=== PATIENT | female | born 1940 | race Caucasian/White ===

== ENCOUNTER 2016-12-03 10:44 | Inpatient (IN) | payer OTHER ==
[~2016-12-03] VITALS: Ht 160 cm; Wt 61.2 kg
[2016-12-03 11:00] VITALS: BP 196/123; PULSE 93; RESP 18; TEMP 97; O2SAT 100
--- NOTE | 2016-12-03 11:15 | NUR ---
Ambulated to Room 6 unassisted steady gait with Daughter. C/O right arm and leg numbness x 20mins at 0600. Pt also states 2 episodes yesterday while sitting at computer. Denies blurred vision or facial asymmetry does c/o PARMAR 09/18. On assessment no neuro deficit noted
--- NOTE | 2016-12-03 11:15 | NUR ---
Patient to ER bed 06 to gown for evaluation. Side rails up. Report given to Miguel Angel KEYES.
--- NOTE | 2016-12-03 11:17 | NUR ---
ER at bedside examining patient.
[2016-12-03] MEDS ORDERED: cloNIDine HCL 0.1 MG TABLET PO ONE (11:30)
[2016-12-03] MEDS ORDERED: METOPROLOL TARTRATE 5 MG/5 ML VIAL IVP ONE (11:30)
--- NOTE | 2016-12-03 11:50 | NUR ---
Telemetry strip printed and interpreted as sinus rhythm. HR: 90
--- NOTE | 2016-12-03 12:05 | NUR ---
off unit to radiology. Dr Heart notified of VS
[2016-12-03 12:22] LABS: PROTHROMBIN TIME 10.5 SECS (9.5-12.5)
--- NOTE | 2016-12-03 12:30 | NUR ---
Pt returned from radiology. PT tolerated well, no signs of distress, vss.
[2016-12-03 12:32] LABS: ALANINE AMINOTRANSFERASE 30 U/L (12-78); ALBUMIN 3.9 g/dL (3.4-4.8); ANION GAP 7 (5-15); ASPARTATE AMINOTRANSFERASE 25 U/L (10-37); CALCIUM 9.2 mg/dL (8.4-11.0); CHLORIDE 107 mmol/L (98-107); CREATININE 0.64 mg/dL (0.55-1.30); GLUCOSE 92 mg/dL (70-99); POTASSIUM 3.6 mmol/L (3.5-5.1); SODIUM SERUM 140 mmol/L (136-145); TOTAL BILIRUBIN 0.4 mg/dL (0.0-1.0); UREA NITROGEN, BLOOD 11 mg/dL (8-21)
[2016-12-03 12:37] LABS: BASOPHILS % (AUTO) 0.7 % (0.0-2.0); EOSINOPHILS % (AUTO) 0.5 % (0.0-4.0); HEMOGLOBIN 12.5 g/dL (12.0-16.0); LYMPHOCYTES # (AUTO) 1.2 K/uL (1.0-5.5); MEAN CORPUSCULAR HEMOGLOBIN 30 pg (27-31); MEAN CORPUSCULAR HGB CONC 34 % (32-36); MEAN CORPUSCULAR VOLUME 87 fL (79.0-98.0); MONOCYTES # (AUTO) 0.5 K/uL (0.0-1.0); MONOCYTES % (AUTO) 8.3 % (1.7-9.3); NEUTROPHILS # (AUTO) 3.8 K/uL (1.8-7.7); NEUTROPHILS % (AUTO) 68.5 % (40.0-70.0); PLATELET COUNT (AUTO) 267 K/uL (130-430); RED BLOOD CELL COUNT(AUTO) 4.23 MIL/uL (4.2-6.2); RED CELL DISTRIBUTION WIDTH 12.9 % (9.0-15.0); WHITE BLOOD COUNT (AUTO) 5.5 K/uL (4.8-10.8)
[2016-12-03 12:40] LABS: BILIRUBIN,URINE NEGATIVE (NEGATIVE); CLARITY/URINE CLEAR (CLEAR); COLOR,URINE YELLOW (YELLOW); GLUCOSE,URINE NEGATIVE (NEGATIVE); KETONES,URINE TRACE (NEGATIVE); LEUKOCYTE ESTERASE ,URINE NEGATIVE (NEGATIVE); NITRITE, URINE NEGATIVE (NEGATIVE); PROTEIN URINE NEGATIVE (NEGATIVE); UROBILINOGEN,URINE 0.2 (0.2-1.0)
[2016-12-03 12:41] LABS: BLOOD, URINE TRACE (NEGATIVE)
[2016-12-03] MEDS ORDERED: ASPIRIN 81 MG TAB.CHEW PO ONE (12:45)
--- NOTE | 2016-12-03 12:45 | NUR ---
Pt medicated as ordered.
[2016-12-03 12:46] LABS: BACTERIA,URINE FEW /HPF (None Seen); MUCUS,URINE None Seen /LPF (None Seen); RBC,URINE 0-3 /HPF (0-3); WBC,URINE 0-3 /HPF (0-3)
[2016-12-03] MEDS ORDERED: cloNIDine HCL 0.1 MG TABLET PO PRN (13:00)
--- NOTE | 2016-12-03 14:05 | NUR ---
Transfer to tele via ACLS protocol. Licensed nurse present. IV present no signs or symptoms of infiltration.
--- NOTE | 2016-12-03 14:05 | NUR ---
Patient will be admitted to care of Dr. Bro. Admitted to tele unit. Will go to room 116 B. Belongings list completed. Summary report printed. Report will be given at bedside.
[2016-12-03 14:10] VITALS: BP 159/86; PULSE 66; RESP 17; TEMP 98.2; O2SAT 97
--- NOTE | 2016-12-03 14:10 | NUR ---
ADMISSION NOTE Received patient from ER via gurney. Patient admitted with diagnosis of HTN Urgency. Patient is awake, alert, oriented X 4. Patient oriented to hospital room, call light, toileting, pain management and safety-teach back done. Patient informed that Saritha will be her nurse. Personal belongings checked and Belongings List documented. Call light within reach.
[2016-12-03] MEDS ORDERED: MAGNESIUM SULFATE 50 ML IV PRN (14:15)
[2016-12-03] MEDS ORDERED: ZOLPIDEM TARTRATE 5 MG TABLET PO PRN (14:15)
[2016-12-03] MEDS ORDERED: DOCUSATE SODIUM 100 MG CAPSULE PO PRN (14:15)
[2016-12-03] MEDS ORDERED: POTASSIUM CHLORIDE 10 MEQ TAB.PRT.SR PO PRN (14:15)
[2016-12-03] MEDS ORDERED: ONDANSETRON HCL 4 MG/2 ML VIAL IVP PRN (14:15)
[2016-12-03] MEDS ORDERED: LORazepam 2 MG/ML VIAL IVP PRN (14:15)
[2016-12-03] MEDS ORDERED: MORPHINE 2 MG/ML INJ. SYRINGE IVP PRN (14:15)
[2016-12-03] MEDS ORDERED: ACETAMINOPHEN 325 MG TABLET PO PRN (14:15)
--- NOTE | 2016-12-03 14:38 | NUR ---
CONSULT CARDIO CARDIAC DR WHITE [phone] DR VANG OUTSIDE SALES INSPECTOR S/W [employer] EXCHANGE @ 0236
--- NOTE | 2016-12-03 15:30 | NUR ---
Admission assessment Received Pt awake, alert, orientated x4. Pt breathing even and unlabored. O2 sat 98% room air. Pt c/o right side numbness and and tingling on the right side of her body. Facial symmetrical, no facial drooping noted. Pt able to raise both upper & lower extremities equally, muscle strength 5/5. Speech is clear. IV access noted right hand 22G, HL. IV site patent with blood return. No s/s of infiltration or inflammation noted. Assessment done. Plan of care discussed with Pt. Informed Pt to push the call light if Pt needs assistance with anything. Pt verbalized understanding. Call light within easy reach, bed at lowest position, will continue to monitor.
[2016-12-03 15:41] LABS: THYROID STIMULATING HORMONE 0.39 uIu/mL (0.34-4.82)
[2016-12-03 16:00] VITALS: BP 159/93; PULSE 66; RESP 16; TEMP 98.5; O2SAT 98
--- NOTE | 2016-12-03 17:38 | NUR ---
PATIENT RESTING: Patient resting quietly. Chest rise and fall noted. No acute distress noted. Vital signs within normal range. Call light within easy reach, bed at lowest position, will continue to monitor.
--- NOTE | 2016-12-03 18:45 | NUR ---
Closing notes Pt awake and eating dinner. Pt denies pain, SOB, discomfort, numbness or tingling. Informed Pt to push the call light if Pt needs assistance with anything. Call light within easy reach, bed at lowest position, will endorse all care to oncoming RN.
--- NOTE | 2016-12-03 19:51 | NUR ---
NOTES; SEEN PT IN BED, A/A/O X4. NO ACUTE DISTRESS NOTED. PT STATED 3/10 HEADACHE . PT STATED THAT SHE TAKES ADVIL FOR HEADACHE. MD TO BE NOTIFIED. BP 157/82, HR 72. AFEBRILE. DENIES ANY DIZZINESS OR FAINTING. ROMAN HAND RETAIL CONSULTANT EQUAL, ROMAN FEET PUSH EQUAL. NO SLURRED SPEECH NOTED. IV SALINE MACEY TO THE RT HAND, PATENT. INSTRUCTED PT ON THE USE OF CALL LIGHT TO CALL FOR ANY NEED TO ASSIST. PT VERBALIZED AND DEMONSTRATED UNDERSTANDING. BED LOCKED AND IN LOW POSITION. SIDE RAILS UP X3, BED ALRAM ON, CALL LIGHT WITHIN REACH.
[2016-12-03 20:06] VITALS: BP 157/82; PULSE 72; RESP 20; TEMP 98.4; O2SAT 96
[2016-12-03] MEDS ORDERED: IBUPROFEN 200 MG TABLET PO PRN (20:30)
--- NOTE | 2016-12-03 20:44 | NUR ---
NOTES; DR HIGGINS CALLED, SPOKE WITH MD AND INFORMED ABOUT PT C/O HEADACHE AND REQUEST FOR ADVIL. ALSO INFORMED MD THAT PT TAKES ARMOUR THYROID 15MG PO DAILY BEFORE MEALS. ORDERS RECEIVED TO CONTINUE HOME MEDICATION OF ARMOUR THYROID 15MG PO DAILY BEFORE MEALS AND ADVIL 600MG PO EVERY 6RS PRN PAIN.
[2016-12-03] MEDS ORDERED: LISINOPRIL 10 MG TABLET (PRINIVIL) PO ONE (21:00)
--- NOTE | 2016-12-03 21:26 | NUR ---
PAGED PAGED BENEDICT LOPEZ AT [phone] SPOKE BETTE WITH GAUTAM MARINELLI X RAY EXAMINER OF AIRCRAFT.
--- NOTE | 2016-12-03 21:34 | NUR ---
NOTES; RECEIVED CRITICAL TROPONIN LEVEL OF 0.144 FROM NOELLE FELICIANO, TEXTILE DESIGNS SALES REPRESENTATIVE. DR. CHRISTOPHER TREVINO, DR VANG SECOND LANGUAGE TUTOR. WAITING FOR DR. VANG TO CALL BACK. RN COVERING AND CHARGE NURSE NOTIFIED.
[2016-12-03] MEDS ORDERED: IBUPROFEN 600 MG TABLET ONE (21:38)
[2016-12-03] MEDS: METOPROLOL TARTRATE 50 MG TABLET PO SCH (21:41)
[2016-12-03] MEDS: HEPARIN SODIUM,PORCINE 5000 UNITS/ML VIAL SUBCUT SCH (21:46)
--- NOTE | 2016-12-03 21:49 | NUR ---
NOTES; WAS UNABLE TO REMOVE IBUPROFEN FROM PIXES. HOUSE SUP INFORMED. MEDICATION WAS TAKEN OUT BY HOUSE SUP. IBUPROFEN 600MG PO ADMINISTERED FOR 6 HEADACHE ALONG WITH ALL DUE PO MEDS. WILL CONTINUE TO MONITOR.
--- NOTE | 2016-12-03 21:56 | NUR ---
2ND PAGE OUT TO PAGED GAUTAM MARINELLI AT [phone] SPOKE WITH HI.
--- NOTE | 2016-12-03 21:58 | NUR ---
NOTES; DR. VANG PAGED FOR THE SECOND TIME FOR CRITICAL TROPONIN LEVEL.
--- NOTE | 2016-12-03 23:05 | NUR ---
3RD PAGE OUT PAGED GAUTAM MARINELLI AT [phone] SPOKE WITH MINE.
--- NOTE | 2016-12-03 23:09 | NUR ---
NOTES; DR VANG CALLED BACK. SPOKE WITH MD AND NOTIFIED HIM OF ELEVATED TROPONIN LEVEL OF 0.144. NO NEW ORDERS RECEIVED. RN COVERING AND CHARGE NURSE NOTIFIED.
[2016-12-03] MEDS ORDERED: COMMUNICATION ORDER XX ONE (23:45)
--- NOTE | 2016-12-04 | NUR ---
NOTES; APPEARED TO BE SLEEPING, EYES CLOSED. RESPIRATION EVEN AND UNLABORED. NO ACUTE DISTRESS NOTED. SAFETY MEASURES IN PROGRESS.
[2016-12-04 00:06] VITALS: BP 150/97; PULSE 57; RESP 18; TEMP 97.4; O2SAT 98
--- NOTE | 2016-12-04 02:00 | NUR ---
NOTES; APPEARED TO BE SLEEPING, EYES CLOSED. RESPIRATION EVEN AND UNLABORED. NO ACUTE DISTRESS NOTED. SAFETY MEASURES IN PROGRESS.
--- NOTE | 2016-12-04 04:04 | NUR ---
NOTES; ASSISTED TO THE BATH ROOM, VOIDED FREELY. ASSISTED BACK TO BED, GAIT STEADY. DENIES ANY PAIN AT THIS TIME. SAFETY MEASURES IN PROGRESS.
[2016-12-04 04:30] VITALS: BP 146/80; PULSE 60; RESP 18; TEMP 98.1; O2SAT 98
--- NOTE | 2016-12-04 06:30 | NUR ---
NOTES; Resting quietly, easily aroused. No significant changes noted. Vital signs stable. All needs attended, safety measures in progress. Call ureña within reach. Will endorse care to incoming nurse.
[2016-12-04 06:55] LABS: ANION GAP 8 (5-15); CALCIUM 8.9 mg/dL (8.4-11.0); CHLORIDE 106 mmol/L (98-107); CREATININE 0.54 mg/dL (0.55-1.30); GLUCOSE 86 mg/dL (70-99); SODIUM SERUM 142 mmol/L (136-145); UREA NITROGEN, BLOOD 13 mg/dL (8-21)
[2016-12-04] MEDS: THYROID 30 MG TABLET PO SCH (07:00)
[2016-12-04 07:01] LABS: BASOPHILS % (AUTO) 0.5 % (0.0-2.0); EOSINOPHILS # (AUTO) 0.2 K/uL (0.0-0.4); EOSINOPHILS % (AUTO) 4.4 % (0.0-4.0); HEMOGLOBIN 11.6 g/dL (12.0-16.0); LYMPHOCYTES # (AUTO) 1.3 K/uL (1.0-5.5); LYMPHOCYTES % (AUTO) 33.1 % (20.5-51.5); MEAN CORPUSCULAR HEMOGLOBIN 29 pg (27-31); MEAN CORPUSCULAR HGB CONC 32 % (32-36); MEAN CORPUSCULAR VOLUME 89 fL (79.0-98.0); MONOCYTES # (AUTO) 0.5 K/uL (0.0-1.0); MONOCYTES % (AUTO) 11.1 % (1.7-9.3); NEUTROPHILS # (AUTO) 2.1 K/uL (1.8-7.7); NEUTROPHILS % (AUTO) 50.9 % (40.0-70.0); PLATELET COUNT (AUTO) 216 K/uL (130-430); RED BLOOD CELL COUNT(AUTO) 4.03 MIL/uL (4.2-6.2); RED CELL DISTRIBUTION WIDTH 12.9 % (9.0-15.0)
[2016-12-04 07:08] LABS: WHITE BLOOD COUNT (AUTO) 4.1 K/uL (4.8-10.8)
--- NOTE | 2016-12-04 07:27 | NUR ---
HANDOFF RECEIVED FROM NOC NURSE. PATIENT TO HAVE MOTRIN DOSE ADJUSTMENT 200MG PER NOC NURSE. CRITICAL LAB CALL FROM LAB. WILL NOTIFY CARDIO.
--- NOTE | 2016-12-04 08:43 | NUR ---
Patient notes history cataract on left eye repaired and right eye needs repair. 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 She plays everyday with friends online. Has noted a headache 3 days prior to this admission. NOC nurse notes increase in bp on exertion systolic 180's. Daughter also notes history of acute osteo and fractures of the spine as a possible cause of the numbness. Call to MD for troponin result, Doctor Centeno.
[2016-12-04 08:47] VITALS: BP 151/78; PULSE 62; RESP 18; TEMP 98.3; O2SAT 94
--- NOTE | 2016-12-04 09:02 | NUR ---
CALLED NEUROLOGY CONSULT TO DR Petrona HOUSER, RE: NEUROPATHY. SPOKE TO THE EXCHANGE .
[2016-12-04] MEDS: ASPIRIN 81 MG TABLET(ECOTRIN) PO SCH (10:16)
[2016-12-04] MEDS: ATORVASTATIN 20 MG TABLET PO SCH (10:16)
[2016-12-04] MEDS: METOPROLOL TARTRATE 50 MG TABLET PO SCH ×2 (10:18→21:17)
[2016-12-04] MEDS: HEPARIN SODIUM,PORCINE 5000 UNITS/ML VIAL SUBCUT SCH ×2 (10:19→21:14)
--- NOTE | 2016-12-04 10:26 | NUR ---
Patient rounds. Given meds as ordered. Conveyed consult/ treatment with neurologist this afternoon likely . Patient and daughter verbalize understanding.
[2016-12-04 12:31] VITALS: BP 190/95; PULSE 60; RESP 18; TEMP 97.7; O2SAT 96
--- NOTE | 2016-12-04 12:38 | NUR ---
ELEVATION IN SYSTOLIC AND DIASTOLIC BP. PRN GIVEN.
--- NOTE | 2016-12-04 15:59 | NUR ---
BP REFRACTORY TO CLONIDINE 0.2MG. WILL MONITOR.
[2016-12-04 16:27] VITALS: BP 188/92; PULSE 59; RESP 19; TEMP 97.8; O2SAT 95
[2016-12-04] MEDS ORDERED: IBUPROFEN 600 MG TABLET PO PRN (18:00)
--- NOTE | 2016-12-04 18:24 | NUR ---
DOCTOR VANG AND DOCTOR HOUSER ROUNDS AT THIS TIME.
--- NOTE | 2016-12-04 18:47 | NUR ---
DOCTOR VANG RECOMMENDATION: DOUBLE THE DOSE OF SCHEDULED BLOOD PRESSURE MEDICINE. DOCTOR HOUSER RECOMMENDS LIPID PANEL AND POSSIBLE CHOLESTEROL MED. D/C HOME IF CAROTID STUDIES ARE NEGATIVE.
[2016-12-04 19:50] VITALS: BP 136/62; PULSE 54; RESP 18; TEMP 96.9; O2SAT 93
--- NOTE | 2016-12-04 20:00 | NUR ---
NOTES; SEEN PT SITTING UP IN BED, A/A/O X4. FAMILY AT BEDSIDE WITH GOOD SUPPORT. NO ACUTE DISTRESS NOTED. VITAL SIGNS STABLE,AFEBRILE. DENIES ANY DIZZINESS, FAINTING OR LEFT SIDE WEAKNESS OR TINGLING SENSATION. ROMAN HAND DIRECT CHILL CASTER EQUAL, ROMAN FEET PUSH EQUAL. NO SLURRED SPEECH NOTED. IV SALINE MACEY TO THE RT HAND, PATENT. NO SIGNS OF INFECTION NOTED ON IV SITE. INSTRUCTED PT ON THE USE OF CALL LIGHT TO CALL FOR ANY NEED TO ASSIST. PT VERBALIZED AND DEMONSTRATED UNDERSTANDING. BED LOCKED AND IN LOW POSITION. SIDE RAILS UP X3, BED ALARM ON, CALL LIGHT WITHIN REACH. WILL CONTINUE TO MONITOR.
--- NOTE | 2016-12-04 21:20 | NUR ---
NOTES; SCHEDULED PO MEDICATION, ADMINISTERED. PT TOLERATED MEDS WELL.
--- NOTE | 2016-12-04 22:30 | NUR ---
NOTES; APPEARED TO BE SLEEPING, EYES CLOSED. RESPIRATION EVEN AND UNLABORED. NO ACUTE DISTRESS NOTED. SAFETY MEASURES IN PROGRESS.
[2016-12-05] VITALS (8 sets, daily range): BP systolic 104–146; BP diastolic 50–72; PULSE 50–59; RESP 17–20; TEMP 96.8–98; O2SAT 95–100
--- NOTE | 2016-12-05 00:15 | NUR ---
NOTES; ASSISTED PT TO THE BATHROOM. VOIDED FREELY . ASSISTED BACK WITH GAIT STEADY.
--- NOTE | 2016-12-05 02:00 | NUR ---
NOTES; APPEARED TO BE SLEEPING, EYES CLOSED. RESPIRATION EVEN AND UNLABORED. NO ACUTE DISTRESS NOTED. SAFETY MEASURES IN PROGRESS.
--- NOTE | 2016-12-05 04:30 | NUR ---
NOTES; APPEARED TO BE SLEEPING, EYES CLOSED. RESPIRATION EVEN AND UNLABORED. NO ACUTE DISTRESS NOTED. SAFETY MEASURES IN PROGRESS.
--- NOTE | 2016-12-05 06:00 | NUR ---
NOTES; Resting quietly, easily aroused. No significant changes noted. All needs attended, safety measures in progress. Call ureña within reach. Will endorse care to incoming nurse.
[2016-12-05 06:58] LABS: BASOPHILS # (AUTO) 0.1 K/uL (0.0-0.2); BASOPHILS % (AUTO) 1.2 % (0.0-2.0); EOSINOPHILS # (AUTO) 0.2 K/uL (0.0-0.4); EOSINOPHILS % (AUTO) 3.8 % (0.0-4.0); HEMATOCRIT 34.6 % (36-48); LYMPHOCYTES # (AUTO) 1.5 K/uL (1.0-5.5); LYMPHOCYTES % (AUTO) 31.9 % (20.5-51.5); MEAN CORPUSCULAR HEMOGLOBIN 30 pg (27-31); MEAN CORPUSCULAR HGB CONC 35 % (32-36); MEAN CORPUSCULAR VOLUME 88 fL (79.0-98.0); MONOCYTES # (AUTO) 0.5 K/uL (0.0-1.0); MONOCYTES % (AUTO) 10.6 % (1.7-9.3); NEUTROPHILS # (AUTO) 2.5 K/uL (1.8-7.7); NEUTROPHILS % (AUTO) 52.5 % (40.0-70.0); PLATELET COUNT (AUTO) 198 K/uL (130-430); RED BLOOD CELL COUNT(AUTO) 3.95 MIL/uL (4.2-6.2); RED CELL DISTRIBUTION WIDTH 12.6 % (9.0-15.0); WHITE BLOOD COUNT (AUTO) 4.8 K/uL (4.8-10.8)
[2016-12-05 07:05] LABS: ANION GAP 5 (5-15); CALCIUM 8.9 mg/dL (8.4-11.0); CHLORIDE 108 mmol/L (98-107); CREATININE 0.63 mg/dL (0.55-1.30); GLUCOSE 90 mg/dL (70-99); SODIUM SERUM 144 mmol/L (136-145); UREA NITROGEN, BLOOD 15 mg/dL (8-21)
[2016-12-05] MEDS: THYROID 30 MG TABLET PO SCH (07:55)
--- NOTE | 2016-12-05 08:00 | NUR ---
AM Initial Notes Pt aaox4 with no complaints of pain, discomfort, numbness or tingling sensations. No sob, difficulty breathing or distress noted. environmental monitoring specialist in place. IV to right hand #22g saline locked patent and flushing. Educated about safety and fall risk precautions. Verbalized understanding. Encouraged to call for assistance. Call light within reach. Will monitor.
[2016-12-05] MEDS: ASPIRIN 81 MG TABLET(ECOTRIN) PO SCH (09:03)
[2016-12-05] MEDS: METOPROLOL TARTRATE 50 MG TABLET PO SCH ×2 (09:03→20:43)
[2016-12-05] MEDS: ATORVASTATIN 20 MG TABLET PO SCH (09:04)
[2016-12-05] MEDS: HEPARIN SODIUM,PORCINE 5000 UNITS/ML VIAL SUBCUT SCH ×2 (09:06→20:45)
--- NOTE | 2016-12-05 09:40 | NUR ---
Dr. Dieudonne WAGGONER doing rounds. Plan of care discussed with patient and daughter at bedside.
[2016-12-05] MEDS ORDERED: LISINOPRIL 10 MG TABLET (PRINIVIL) PO SCH (09:45)
--- NOTE | 2016-12-05 10:00 | NUR ---
Rounds Pt awake resting in bed. No complaints of pain or numbness to arms. Kept comfortable. Encouraged to call for assistance. Will monitor.
[2016-12-05] MEDS ORDERED: THYROID 30 MG TABLET PO ONE (10:15)
[2016-12-05] MEDS ORDERED: LISINOPRIL 10 MG TABLET (PRINIVIL) PO ONE (11:45)
--- NOTE | 2016-12-05 11:45 | NUR ---
Blood pressure Pt just finished walking inside room and sitting up in bed. No complaints of dizziness or light headedness. Blood pressure taken 182/79. Clonidine 0.1mg given. Will monitor.
[2016-12-05] MEDS: cloNIDine HCL 0.1 MG TABLET PO PRN (11:46)
--- NOTE | 2016-12-05 12:45 | NUR ---
Re-check Blood Pressure Pt awake resting in bed eating lunch. No significant changes noted. Blood pressure 135/63 and HR 54 after administration of Lisinopril and Clonidine an hour ago. Will continue to monitor.
--- NOTE | 2016-12-05 13:30 | NUR ---
Blood Pressure Pt came from ambulating for BRP. Recheck blood pressure Right arm 117/72 with HR or 56 then Left arm 114/63 with HR 55. Will continue to monitor.
--- NOTE | 2016-12-05 15:23 | NUR ---
Rounds Pt asleep. No signs of facial grimacing for pain or discomfort. No distress noted. Call light within reach. Will monitor.
--- NOTE | 2016-12-05 16:39 | NUR ---
Dr. Jacobo WAGGONER doing rounds. Plan of care discussed with patient.
--- NOTE | 2016-12-05 17:15 | NUR ---
Rounds Pt awake resting in bed. No significant changes noted. Will monitor.
--- NOTE | 2016-12-05 18:40 | NUR ---
Closing Notes Pt asleep. No significant changes noted. Call ureña within reach. Will endorse care to incoming nurse.
--- NOTE | 2016-12-05 19:37 | NUR ---
NOTES; SEEN PT SITTING UP IN BED, A/A/O X4. FAMILY AT BEDSIDE WITH GOOD SUPPORT. NO ACUTE DISTRESS NOTED. VITAL SIGNS STABLE,AFEBRILE. DENIES ANY DIZZINESS, FAINTING OR LEFT SIDE WEAKNESS OR TINGLING SENSATION. ROMAN HAND MANAGER DATABASE EQUAL, ROMAN FEET PUSH EQUAL. NO SLURRED SPEECH NOTED. IV SALINE MACEY TO THE RT HAND, PATENT. NO SIGNS OF INFECTION NOTED ON IV SITE. INSTRUCTED PT ON THE USE OF CALL LIGHT TO CALL FOR ANY NEED TO ASSIST. PT VERBALIZED AND DEMONSTRATED UNDERSTANDING. BED LOCKED AND IN LOW POSITION. SIDE RAILS UP X3, BED ALARM ON, CALL LIGHT WITHIN REACH. WILL CONTINUE TO MONITOR.
[2016-12-05] MEDS: LISINOPRIL 10 MG TABLET (PRINIVIL) PO SCH (20:42)
--- NOTE | 2016-12-05 20:47 | NUR ---
NOTES; SCHEDULED MEDICATIONS ADMINISTERED. PT TOLERATED MEDS WELL.
--- NOTE | 2016-12-05 22:00 | NUR ---
NOTES; ASSISTED TO THE BATHROOM. PT VOIDED FREELY, ASSISTED BACK TO BED. GAIT STEADY. CALL LIGHT WITHIN REACH. SAFETY MEASURES IN PROGRESS.
--- NOTE | 2016-12-06 00:35 | NUR ---
NOTES; APPEARED TO BE SLEEPING, EYES CLOSED. RESPIRATION EVEN AND UNLABORED. NO ACUTE DISTRESS NOTED. SAFETY MEASURES IN PROGRESS.
[2016-12-06 00:44] VITALS: BP 132/59; PULSE 50; RESP 14; TEMP 98.8; O2SAT 97
--- NOTE | 2016-12-06 02:10 | NUR ---
NOTES; APPEARED TO BE SLEEPING, EYES CLOSED. RESPIRATION EVEN AND UNLABORED. NO ACUTE DISTRESS NOTED. SAFETY MEASURES IN PROGRESS.
[2016-12-06 04:12] VITALS: BP 118/62; PULSE 55; RESP 14; TEMP 97.2; O2SAT 93
--- NOTE | 2016-12-06 04:30 | NUR ---
NOTES; APPEARED TO BE SLEEPING, EYES CLOSED. RESPIRATION EVEN AND UNLABORED. NO ACUTE DISTRESS NOTED. SAFETY MEASURES IN PROGRESS.
--- NOTE | 2016-12-06 06:11 | NUR ---
NOTES; WINDOWS OPEN PER PT REQUEST. PT SITTING BY WINDOW, ENJOYING VIEW PWE PT. ANXIOUS TO GO HOME. DENIES ANY PAIN AT THIS TIME. VITAL SIGNS STABLE. AFEBRILE. IV PATENT. ALL NEEDS ATTENDED. SAFETY MEASURES MAINTAINED.
[2016-12-06 06:36] LABS: BASOPHILS % (AUTO) 0.9 % (0.0-2.0); EOSINOPHILS # (AUTO) 0.2 K/uL (0.0-0.4); EOSINOPHILS % (AUTO) 4.7 % (0.0-4.0); HEMATOCRIT 36.4 % (36-48); LYMPHOCYTES # (AUTO) 1.7 K/uL (1.0-5.5); LYMPHOCYTES % (AUTO) 33.5 % (20.5-51.5); MEAN CORPUSCULAR HEMOGLOBIN 29 pg (27-31); MEAN CORPUSCULAR HGB CONC 33 % (32-36); MEAN CORPUSCULAR VOLUME 89 fL (79.0-98.0); MONOCYTES # (AUTO) 0.6 K/uL (0.0-1.0); MONOCYTES % (AUTO) 11.9 % (1.7-9.3); NEUTROPHILS # (AUTO) 2.6 K/uL (1.8-7.7); PLATELET COUNT (AUTO) 225 K/uL (130-430); RED BLOOD CELL COUNT(AUTO) 4.12 MIL/uL (4.2-6.2); RED CELL DISTRIBUTION WIDTH 12.8 % (9.0-15.0); WHITE BLOOD COUNT (AUTO) 5.1 K/uL (4.8-10.8)
[2016-12-06 06:47] LABS: ANION GAP 4 (5-15); CALCIUM 8.7 mg/dL (8.4-11.0); CHLORIDE 106 mmol/L (98-107); CREATININE 0.65 mg/dL (0.55-1.30); GLUCOSE 89 mg/dL (70-99); POTASSIUM 3.7 mmol/L (3.5-5.1); SODIUM SERUM 140 mmol/L (136-145); UREA NITROGEN, BLOOD 15 mg/dL (8-21)
[2016-12-06] MEDS ORDERED: THYROID 30 MG TABLET PO SCH (07:00)
--- NOTE | 2016-12-06 08:00 | NUR ---
AM Initial note Pt aaox4 with no complaints of pain or discomfort. [place] numbness to right leg and slowly went away after a minute then felt numbness to right arm. No sob, difficulty breathing or distress noted. Cardica monitor in place. Vital signs: T-97.6, P-56, R-18, BP-178/69, O2 sat-99%. Re-educated about fall and safety precautions. Refused to have bed alarm armed. Will medicate patient with scheduled medications. Encouraged to call for assistance. Call light within reach. Will monitor.
[2016-12-06 08:02] VITALS: BP 178/69; PULSE 56; RESP 18; TEMP 97.6; O2SAT 99
[2016-12-06] MEDS: LISINOPRIL 10 MG TABLET (PRINIVIL) PO SCH (08:29)
[2016-12-06] MEDS: ASPIRIN 81 MG TABLET(ECOTRIN) PO SCH (08:29)
[2016-12-06] MEDS: ATORVASTATIN 20 MG TABLET PO SCH (08:29)
[2016-12-06] MEDS: METOPROLOL TARTRATE 50 MG TABLET PO SCH (08:29)
[2016-12-06] MEDS: HEPARIN SODIUM,PORCINE 5000 UNITS/ML VIAL SUBCUT SCH (08:36)
[2016-12-06] MEDS: cloNIDine HCL 0.1 MG TABLET PO PRN (10:20)
--- NOTE | 2016-12-06 10:21 | NUR ---
Rounds Pt ambulating and started to feel right leg numbness. Blood pressure 178/73. Medicated with Clonidine 0.1mg. Will monitor blood pressure. Dr. Bro at Nurse's station and made aware.
[2016-12-06] MEDS ORDERED: LIP20 PO (10:30)
[2016-12-06] MEDS ORDERED: LISI-600 PO (10:30)
[2016-12-06] MEDS ORDERED: METO-442 PO (10:30)
[2016-12-06] MEDS ORDERED: ASPI-1063 PO (10:30)
[2016-12-06] MEDS ORDERED: CLOP75TA2 PO (10:30)
--- NOTE | 2016-12-06 10:30 | NUR ---
Dr. Dieudonne WAGGONER doing rounds. Plan of care discussed with patient and daughter at bedside.
--- NOTE | 2016-12-06 11:44 | NUR ---
DC PLANNING: RECEIVED DC ORDER FOR [facility] RECOMMENDED [facility]. CALLED /S/W STACIA FROM [facility] TEL# [phone] AND FAXED ORDER PLUS CLINICAL INFORMATION TO FAX# [phone]. STACIA WILL CALL THE PATIENT AND MAKE AN APPOINTMENT FOR THE IST VISIT, INFORMED MARRY LAU.
[2016-12-06 12:24] VITALS: BP 114/65; PULSE 50; RESP 18; TEMP 97.8; O2SAT 95
--- NOTE | 2016-12-06 12:26 | NUR ---
Rounds Pt awake having lunch. No complaints of numbness to arms and legs. No distress noted. Encouraged to call for assistance. Call light within reach. Will monitor.
[2016-12-06 12:31] VITALS: BP 133/62; PULSE 50; RESP 17; TEMP 97.9; O2SAT 98
[2016-12-06 12:34] VITALS: BP 114/65; PULSE 50; RESP 18; TEMP 97.8; O2SAT 95
--- NOTE | 2016-12-06 13:40 | NUR ---
Discharge Discharge patient with daughter, Abena Brambila. Transitional care instructions and hand out explained and given. D/C advisory services associate. D/c IV saline lock. Vital signs: T-97.8, P-50, R-18, BP-114/65, O2 sat-95%. Pt left floor via w/c to private vehicle. No distress noted.
--- NOTE | 2016-12-06 14:45 | NUR ---
Rounds Pt awake resting in bed watching tv. No significant changes noted. Repositioned and kept comfortable. Will monitor. Addendum: 12/06/16 at 1701 by Oscar Damon LVN Charted on wrong patient.
--- NOTE | 2016-12-11 12:23 | NUR ---
Discharge Follow Up Phone Calls: Duco Polisher called and attempted to speak with pt ([phone]) on 12/10/16, but the voice mail box was full. DISTRIBUTION OPERATIONS SUPERVISOR called pt today and pt's dtr, Abena, answered the phone. Pt's dtr states that pt is doing well; pt's prescriptions have been filled; there are no questions regarding discharge or medication instructions; pt has a follow up appointment scheduled for 12/14/16; pt received a call from [facility] and pt has requested that they visit pt next week when she is feeling better. Pt's dtr did not express any other needs or concerns and denied the need for additional follow up at this time. No further follow up phone calls required at this time.
== END 2016-12-06 13:42 | disposition home health service (06) | DRG 69 ==
LOC: SED 10:44 → STU 12:46 → SMU 12-06 12:44
PROVIDERS: ADMIT General Practice; ATTEND General Practice
DX: G45.9 Transient cerebral ischemic attack, unspecified (principal); G90.9 Disorder of the autonomic nervous system, unspecified; I16.0 Hypertensive urgency; M81.0 Age-related osteoporosis without current pathological fracture; E03.9 Hypothyroidism, unspecified; G62.9 Polyneuropathy, unspecified; M47.812 Spondylosis without myelopathy or radiculopathy, cervical region; G89.29 Other chronic pain; M54.5 Low back pain; M47.816 Spondylosis without myelopathy or radiculopathy, lumbar region; E78.5 Hyperlipidemia, unspecified; M19.90 Unspecified osteoarthritis, unspecified site; I10 Essential (primary) hypertension; Z87.891 Personal history of nicotine dependence; Z79.82 Long term (current) use of aspirin; Z88.6 Allergy status to analgesic agent; Z88.0 Allergy status to penicillin; Z98.49 Cataract extraction status, unspecified eye
CPT/HCPCS: 36415; 70450-TC; 71010; 72040-TC; 80048; 80053; 80061; 81000-TC; 83735-TC; 84443-TC; 84484; 85025; 85610-TC; 85730-TC; 93005; 93306; 93880; 96374; 99285; J1644; J3490

== ENCOUNTER 2017-01-18 08:04 | Outpatient (CLI) | payer OTHER ==
[~2017-01-18 08:04] MED LIST: ASPI-1063 PO; CLOP75TA2 PO; LIP20 PO; LISI-600 PO; METO-442 PO
[2017-01-18 08:40] LABS: BILIRUBIN,URINE NEGATIVE (NEGATIVE); CLARITY/URINE CLEAR (CLEAR); COLOR,URINE YELLOW (YELLOW); GLUCOSE,URINE NEGATIVE (NEGATIVE); KETONES,URINE NEGATIVE (NEGATIVE); LEUKOCYTE ESTERASE ,URINE NEGATIVE (NEGATIVE); NITRITE, URINE NEGATIVE (NEGATIVE); PROTEIN URINE NEGATIVE (NEGATIVE); UROBILINOGEN,URINE 0.2 (0.2-1.0)
[2017-01-18 08:44] LABS: BLOOD, URINE TRACE (NEGATIVE)
[2017-01-18 08:49] LABS: EOSINOPHILS # (AUTO) 0.2 K/uL (0.0-0.4); EOSINOPHILS % (AUTO) 3.2 % (0.0-4.0)
[2017-01-18 08:51] LABS: RBC,URINE 0-3 /HPF (0-3); WBC,URINE 0-3 /HPF (0-3)
[2017-01-18 08:52] LABS: BACTERIA,URINE RARE /HPF (None Seen)
[2017-01-18 08:55] LABS: BASOPHILS % (AUTO) 0.8 % (0.0-2.0); HEMATOCRIT 37.4 % (36-48); HEMOGLOBIN 12.6 g/dL (12.0-16.0); LYMPHOCYTES # (AUTO) 1.5 K/uL (1.0-5.5); LYMPHOCYTES % (AUTO) 29.5 % (20.5-51.5); MEAN CORPUSCULAR HEMOGLOBIN 30 pg (27-31); MEAN CORPUSCULAR HGB CONC 34 % (32-36); MEAN CORPUSCULAR VOLUME 88 fL (79.0-98.0); MONOCYTES # (AUTO) 0.6 K/uL (0.0-1.0); MONOCYTES % (AUTO) 10.7 % (1.7-9.3); NEUTROPHILS # (AUTO) 2.9 K/uL (1.8-7.7); NEUTROPHILS % (AUTO) 55.8 % (40.0-70.0); PLATELET COUNT (AUTO) 222 K/uL (130-430); RED BLOOD CELL COUNT(AUTO) 4.23 MIL/uL (4.2-6.2); RED CELL DISTRIBUTION WIDTH 13.1 % (9.0-15.0); WHITE BLOOD COUNT (AUTO) 5.2 K/uL (4.8-10.8)
[2017-01-18 09:06] LABS: ANION GAP 3 (5-15); CALCIUM 9.2 mg/dL (8.4-11.0); CHLORIDE 108 mmol/L (98-107); GLUCOSE 93 mg/dL (70-99); SODIUM SERUM 141 mmol/L (136-145)
[2017-01-18 09:07] LABS: ALANINE AMINOTRANSFERASE 27 U/L (12-78); ALBUMIN 3.7 g/dL (3.4-4.8); ASPARTATE AMINOTRANSFERASE 21 U/L (10-37); CREATININE 0.66 mg/dL (0.55-1.30); IRON (SERUM) 66 mcg/dL (37-145); TOTAL BILIRUBIN 0.4 mg/dL (0.0-1.0); TOTAL PROTEIN, SERUM 7.1 g/dL (6.4-8.3); UREA NITROGEN, BLOOD 14 mg/dL (8-21)
[2017-01-18 09:08] LABS: URIC ACID 4.8 mg/dL (2.4-7.0)
[2017-01-18 10:17] LABS: CHOLESTEROL 141 mg/dL (<200); HDL CHOLESTEROL 59 mg/dL (>55); TRIGLYCERIDES 53 mg/dL (30-150)
[2017-01-18 10:18] LABS: LDL CHOLESTEROL 65 mg/dL (<100); THYROID STIMULATING HORMONE 0.74 uIu/mL (0.34-4.82)
[2017-01-18] MEDS ORDERED: ARMOUR PO (16:12)
[2017-01-19 12:15] LABS: FOLATE (FOLIC ACID) 19.7 ng/mL (>3.0)
== END 2017-01-18 18:15 | disposition home or self-care (01) ==
LOC: SLB 08:04
PROVIDERS: ATTEND Internal Medicine
DX: I10 Essential (primary) hypertension (principal); D64.9 Anemia, unspecified; E78.5 Hyperlipidemia, unspecified; E03.9 Hypothyroidism, unspecified
CPT/HCPCS: 36415; 80053; 80061; 81000-TC; 82306; 82607; 82746; 83540-TC; 83735-TC; 84443-TC; 84484; 84550-TC; 85025

== ENCOUNTER 2017-01-18 15:02 | Inpatient (IN) | payer OTHER ==
[~2017-01-18] VITALS: Ht 160 cm; Wt 59.0 kg
[2017-01-18 15:15] VITALS: BP_SYST 162
--- NOTE | 2017-01-18 15:24 | NUR ---
Placed in room 1 . Placed on front desk monitor, blood pressure machine and pulse oximeter. To gown for exam. Side rails up. Report given to Cristy KEYES.
[2017-01-18] MEDS ORDERED: ASPIRIN 81 MG TAB.CHEW PO ONE (15:30)
--- NOTE | 2017-01-18 15:30 | NUR ---
Dr Bahena at bedside examining patient
--- NOTE | 2017-01-18 15:30 | NUR ---
Pt brought by daughter, A&Ox4, pt sent from Dr Cole office due to elevated troponin, skin pink and warm, respirations even and unlabored, denies chest pain, VS WNL, pt states she took aspirin this am, ambulatory.
[2017-01-18] MEDS ORDERED: ARMOUR PO (16:12)
[2017-01-18 16:20] LABS: BASOPHILS # (AUTO) 0.1 K/uL (0.0-0.2); BASOPHILS % (AUTO) 0.8 % (0.0-2.0); EOSINOPHILS # (AUTO) 0.2 K/uL (0.0-0.4); EOSINOPHILS % (AUTO) 3.3 % (0.0-4.0); HEMATOCRIT 36.7 % (36-48); HEMOGLOBIN 12.5 g/dL (12.0-16.0); LYMPHOCYTES # (AUTO) 1.9 K/uL (1.0-5.5); LYMPHOCYTES % (AUTO) 28.6 % (20.5-51.5); MEAN CORPUSCULAR HEMOGLOBIN 30 pg (27-31); MEAN CORPUSCULAR HGB CONC 34 % (32-36); MEAN CORPUSCULAR VOLUME 88 fL (79.0-98.0); MONOCYTES # (AUTO) 0.8 K/uL (0.0-1.0); MONOCYTES % (AUTO) 11.3 % (1.7-9.3); NEUTROPHILS # (AUTO) 3.8 K/uL (1.8-7.7); PLATELET COUNT (AUTO) 226 K/uL (130-430); RED BLOOD CELL COUNT(AUTO) 4.19 MIL/uL (4.2-6.2); RED CELL DISTRIBUTION WIDTH 13.1 % (9.0-15.0); WHITE BLOOD COUNT (AUTO) 6.8 K/uL (4.8-10.8)
--- NOTE | 2017-01-18 16:20 | NUR ---
Patient will be admitted to care of Dr Cole . Admitted to Tele in unit. Will go to room 135. Belongings list completed. Summary report printed. Report will be given at bedside.
--- NOTE | 2017-01-18 16:22 | NUR ---
ADMIT NOTE Received pt from ER to the floor with a diagnosis of ELEVATED TROP. Admission process initiated. patient oriented to pain management, safety and call light-teach back done.
[2017-01-18 16:25] LABS: PROTHROMBIN TIME 10.7 SECS (9.5-12.5)
[2017-01-18 16:27] LABS: ANION GAP 3 (5-15); CALCIUM 8.9 mg/dL (8.4-11.0); CHLORIDE 106 mmol/L (98-107); CREATININE 0.91 mg/dL (0.55-1.30); GLUCOSE 102 mg/dL (70-99); POTASSIUM 4.3 mmol/L (3.5-5.1); SODIUM SERUM 139 mmol/L (136-145); UREA NITROGEN, BLOOD 18 mg/dL (8-21)
--- NOTE | 2017-01-18 16:30 | NUR ---
Received Patient Received patient aaox4 with no complaints of pain or discomfort. No sob, difficulty breathing or distress noted. Oriented patient to unit. Educated about fall and safety precautions. Patient refused to have bed alarm armed. Kept comfortable. Encouraged to call for assistance. Call light within reach. Will monitor.
[2017-01-18 16:36] VITALS: BP_SYST 167
--- NOTE | 2017-01-18 17:54 | NUR ---
CARDIO CONSULT: DR WHITE Consult was called, VEENA Anderson RE [facility] Trop
--- NOTE | 2017-01-18 18:00 | NUR ---
Dr. Douglas WAGGONER inside room assessing patient. Plan of care discussed.
[2017-01-18] MEDS ORDERED: cloNIDine HCL 0.1 MG TABLET PO PRN (18:30)
[2017-01-18] MEDS ORDERED: ACETAMINOPHEN 325 MG TABLET PO PRN (18:30)
--- NOTE | 2017-01-18 18:45 | NUR ---
Closing notes Pt awake sitting up in bed resting. No complaints of pain or discomfort. No distress noted. Encouraged to call for assistance. Will endorse care to incoming nurse.
--- NOTE | 2017-01-18 19:46 | NUR ---
initial notes: pt is sitting on bed. awake, alert, oriented. no distress. no pain. iv lock to right forearm gauge 22-intact. pt has right hand sarah bandage due swelling from iv- md aware and saw it. pt refused to alarm the bed. instructed to call for assistance. donna light in reach. will monitor.
[2017-01-18 19:52] VITALS: BP_SYST 150
[2017-01-18] MEDS ORDERED: METOPROLOL TARTRATE 50 MG TABLET PO SCH (21:00)
--- NOTE | 2017-01-18 22:28 | NUR ---
ROUND NOTES: PT IS AWAKE, ALERT. READING POCKET BOOK. NO PAIN. NO DISTRESS. WILL MONITOR.
--- NOTE | 2017-01-19 00:04 | NUR ---
ROUND NOTES: PT IS SLEEPING, NO DISTRESS. NO PAIN. VITAL SIGN ARE STABLE. CALL LIGHT IN REACH. WILL MONITOR.
--- NOTE | 2017-01-19 00:05 | NUR ---
RECEIVED CALL FROM RECONCILEMENT CLERK CHECKING BP-175/70, HR-62. NO COMPLAIN OF PAIN. WILL GIVE PRN MEDICATION FOR BP.
[2017-01-19 01:31] VITALS: BP_SYST 175
--- NOTE | 2017-01-19 02:04 | NUR ---
ROUND NOTES: SLEEPING. NOT DISTRESS. NO SOB. CALL IN REACH. WILL MONITOR.
[2017-01-19 04:00] VITALS: BP_SYST 126
--- NOTE | 2017-01-19 04:03 | NUR ---
ROUND NOTES: SLEEPING ON HER SIDE. NOT DISTRESS. NO SOB. CALL IN REACH. WILL MONITOR.
--- NOTE | 2017-01-19 06:08 | NUR ---
ROUND NOTES: PT IS AWAKE, ALERT. NO PAIN. SITTING ON BED. NO SOB. NEEDS ATTENDED. CALL LIGHT IN REACH. WILL MONITOR.
--- NOTE | 2017-01-19 06:47 | NUR ---
closing: pt is awake, alert. complain of headache. no distress. pt took her home thyroid medication. explain to pt that will provide her schedule medication. needs attended. call light in reach. will give bedside report to am rn.
[2017-01-19 08:00] VITALS: BP_SYST 119
--- NOTE | 2017-01-19 08:00 | NUR ---
initial notes rec patient awake alert sitting at the edge of the bed and reading her book. ivl on the r forearm intact. no infiltration noted. resp easy and unlabored. denies chest pain. resp easy and unlabored. no sob noted. fall/safety precaution reinforced. bed in low position and call light within reached. awaiting for dr woodard to see patient.
[2017-01-19] MEDS ORDERED: ATORVASTATIN 20 MG TABLET PO SCH (09:00)
[2017-01-19] MEDS ORDERED: CLOPIDOGREL BISULFATE 75 MG TABLET PO SCH (09:00)
[2017-01-19] MEDS ORDERED: ASPIRIN 81 MG TABLET(ECOTRIN) PO SCH (09:00)
[2017-01-19] MEDS ORDERED: THYROID 30 MG TABLET PO SCH (09:00)
[2017-01-19] MEDS ORDERED: METOPROLOL TARTRATE 50 MG TABLET PO SCH (09:00)
[2017-01-19] MEDS ORDERED: LISINOPRIL 20 MG TABLET PO SCH ×2 (09:00)
--- NOTE | 2017-01-19 10:00 | NUR ---
rounds due meds given as ordered. seen y dr woodard and with orders. daughter at the bedside with patient.
[2017-01-19 12:00] VITALS: BP_SYST 120
--- NOTE | 2017-01-19 12:00 | NUR ---
ethan vergara in the room with patient. will be discharging the patient.
--- NOTE | 2017-01-19 13:52 | NUR ---
closing notes pt ws discharged. ivl and id band was removed.escorted outside and ambulated with her walker. daughter was here to pick and shovel man patient. no sob noted. instructed re appt with dr vergara. needs attended and stable.
--- NOTE | 2017-01-25 14:09 | NUR ---
Discharge Follow Up Phone Call: EPIC TRAINER called pt ([phone]) and pt's dtr, Abnea, answered the phone. Pt's dtr states that pt is doing well; there are no questions regarding discharge or medication instructions; pt has a follow up appointment scheduled with PCP, Dr. Cole. Pt's dtr did not express any other needs or concerns and denied the need for additional follow up at this time. No further follow up phone calls required at this time.
== END 2017-01-19 13:52 | disposition home or self-care (01) | DRG 552 ==
LOC: SED 15:02 → STU 15:56
PROVIDERS: ADMIT Internal Medicine; ATTEND Internal Medicine
DX: M47.812 Spondylosis without myelopathy or radiculopathy, cervical region (principal); R53.1 Weakness; E03.9 Hypothyroidism, unspecified; E78.5 Hyperlipidemia, unspecified; I11.9 Hypertensive heart disease without heart failure; M19.90 Unspecified osteoarthritis, unspecified site; H26.9 Unspecified cataract; M81.0 Age-related osteoporosis without current pathological fracture; T14.8 Other injury of unspecified body region; X58.XXXA Exposure to other specified factors, initial encounter; T45.525A Adverse effect of antithrombotic drugs, initial encounter; Z88.0 Allergy status to penicillin; Z88.5 Allergy status to narcotic agent; Z79.899 Other long term (current) drug therapy; Z79.82 Long term (current) use of aspirin; Y92.89 Other specified places as the place of occurrence of the external cause; Z87.891 Personal history of nicotine dependence; Y93.89 Activity, other specified; Y99.8 Other external cause status
CPT/HCPCS: 36415; 71010; 80048; 84484; 85025; 85610-TC; 85730-TC; 93005; 99285

== ENCOUNTER 2017-08-18 07:15 | Outpatient (CLI) | payer OTHER ==
[~2017-08-18 07:15] MED LIST changes: +ARMOUR PO; -CLOP75TA2 PO
[2017-08-18 18:26] LABS: SODIUM SERUM 145 mmol/L (136-145)
[2017-08-18 18:27] LABS: ANION GAP 8 (5-15); CHLORIDE 107 mmol/L (98-107); CREATININE 0.54 mg/dL (0.55-1.30); GLUCOSE 93 mg/dL (70-99); POTASSIUM 3.7 mmol/L (3.5-5.1); UREA NITROGEN, BLOOD 19 mg/dL (8-21)
[2017-08-18 20:30] LABS: ALANINE AMINOTRANSFERASE 32 U/L (12-78); ALBUMIN 3.6 g/dL (3.4-4.8); ASPARTATE AMINOTRANSFERASE 24 U/L (10-37); CHOLESTEROL 160 mg/dL (<200); HDL CHOLESTEROL 62 mg/dL (>55); LDL CHOLESTEROL 80 mg/dL (<100); TOTAL BILIRUBIN 0.4 mg/dL (0.0-1.0); TRIGLYCERIDES 53 mg/dL (30-150); URIC ACID 5.2 mg/dL (2.4-7.0)
[2017-08-18 21:02] LABS: TOTAL IRON BIND. CAPACITY 172 ug/dL (250-450)
[2017-08-19 14:48] LABS: HEMATOCRIT 36.4 % (36-48); MEAN CORPUSCULAR HEMOGLOBIN 30 pg (27-31); MEAN CORPUSCULAR HGB CONC 33 % (32-36); MEAN CORPUSCULAR VOLUME 90 fL (79.0-98.0); PLATELET COUNT (AUTO) 275 K/uL (130-430); RED BLOOD CELL COUNT(AUTO) 4.06 MIL/uL (4.2-6.2); RED CELL DISTRIBUTION WIDTH 14.1 % (9.0-15.0); WHITE BLOOD COUNT (AUTO) 5.2 K/uL (4.8-10.8)
[2017-08-19 14:49] LABS: BASOPHILS % (AUTO) 0.8 % (0.0-2.0); EOSINOPHILS # (AUTO) 0.3 K/uL (0.0-0.4); EOSINOPHILS % (AUTO) 5.5 % (0.0-4.0); LYMPHOCYTES # (AUTO) 1.7 K/uL (1.0-5.5); MONOCYTES # (AUTO) 0.6 K/uL (0.0-1.0); MONOCYTES % (AUTO) 11.7 % (1.7-9.3); NEUTROPHILS # (AUTO) 2.6 K/uL (1.8-7.7)
[2017-08-20 07:18] LABS: HEMOGLOBIN A1C 5.4 % (4.8-5.6)
[2017-08-20 09:11] LABS: FOLATE (FOLIC ACID) 12.2 ng/mL (>3.0)
== END 2017-08-18 22:17 | disposition home or self-care (01) ==
LOC: SLB 07:15
PROVIDERS: ATTEND Internal Medicine
DX: I10 Essential (primary) hypertension (principal); E11.9 Type 2 diabetes mellitus without complications; E03.9 Hypothyroidism, unspecified; E78.5 Hyperlipidemia, unspecified; E55.9 Vitamin D deficiency, unspecified; M81.0 Age-related osteoporosis without current pathological fracture
CPT/HCPCS: 36415; 80053; 80061; 82306; 82607; 82746; 83036; 83540-TC; 83550-TC; 83735-TC; 84443-TC; 84550-TC; 85025

== ENCOUNTER 2018-05-13 07:43 | Outpatient (CLI) | payer OTHER ==
[~2018-05-13 07:43] MED LIST changes: -ASPI-1063 PO; +ASPI-1153 PO
[2018-05-13 08:29] LABS: BASOPHILS % (AUTO) 0.8 % (0.0-2.0); EOSINOPHILS # (AUTO) 0.2 K/uL (0.0-0.4); EOSINOPHILS % (AUTO) 2.9 % (0.0-4.0); HEMATOCRIT 37.7 % (36-48); HEMOGLOBIN 12.5 g/dL (12.0-16.0); LYMPHOCYTES # (AUTO) 1.6 K/uL (1.0-5.5); MEAN CORPUSCULAR HEMOGLOBIN 30 pg (27-31); MEAN CORPUSCULAR HGB CONC 33 % (32-36); MEAN CORPUSCULAR VOLUME 91 fL (79.0-98.0); MONOCYTES # (AUTO) 0.6 K/uL (0.0-1.0); NEUTROPHILS # (AUTO) 3.2 K/uL (1.8-7.7); NEUTROPHILS % (AUTO) 57.3 % (40.0-70.0); PLATELET COUNT (AUTO) 308 K/uL (130-430); RED BLOOD CELL COUNT(AUTO) 4.15 MIL/uL (4.2-6.2); RED CELL DISTRIBUTION WIDTH 13.4 % (9.0-15.0); WHITE BLOOD COUNT (AUTO) 5.6 K/uL (4.8-10.8)
[2018-05-13 08:50] LABS: ANION GAP 6 (5-15); CALCIUM 9.2 mg/dL (8.4-11.0); CHLORIDE 108 mmol/L (98-107); CREATININE 0.65 mg/dL (0.55-1.30); GLUCOSE 95 mg/dL (70-99); POTASSIUM 4.7 mmol/L (3.5-5.1); SODIUM SERUM 143 mmol/L (136-145); UREA NITROGEN, BLOOD 21 mg/dL (8-21)
[2018-05-13 09:06] LABS: TOTAL BILIRUBIN 0.6 mg/dL (0.0-1.0)
[2018-05-13 09:07] LABS: ALANINE AMINOTRANSFERASE 40 U/L (12-78); ALBUMIN 3.5 g/dL (3.4-4.8); ASPARTATE AMINOTRANSFERASE 29 U/L (10-37); THYROID STIMULATING HORMONE 1.53 uIu/mL (0.36-3.74); URIC ACID 5.2 mg/dL (2.4-7.0)
[2018-05-13 15:03] LABS: CHOLESTEROL 146 mg/dL (<200); HDL CHOLESTEROL 74 mg/dL (>55); LDL CHOLESTEROL 68 mg/dL (<100); TRIGLYCERIDES 28 mg/dL (30-150)
[2018-05-14 06:06] LABS: HEMOGLOBIN A1C 5.3 % (4.8-5.6)
[2018-05-14 13:39] LABS: FOLATE (FOLIC ACID) >20.0 ng/mL (>3.0)
== END 2018-05-13 19:23 | disposition home or self-care (01) ==
LOC: SLB 07:43
PROVIDERS: ATTEND Internal Medicine
DX: E78.5 Hyperlipidemia, unspecified (principal); E03.9 Hypothyroidism, unspecified; E11.65 Type 2 diabetes mellitus with hyperglycemia; I10 Essential (primary) hypertension; Z79.899 Other long term (current) drug therapy
CPT/HCPCS: 36415; 80053; 80061; 82306; 82607; 82746; 83036; 83540-TC; 83735-TC; 84443-TC; 84550-TC; 85025

== ENCOUNTER 2018-12-15 07:39 | Outpatient (CLI) | payer OTHER ==
[2018-12-15 09:36] LABS: BASOPHILS # (AUTO) 0.1 K/uL (0.0-0.2); BASOPHILS % (AUTO) 0.9 % (0.0-2.0); BILIRUBIN,URINE NEGATIVE (NEGATIVE); CLARITY/URINE CLEAR (CLEAR); COLOR,URINE YELLOW (YELLOW); EOSINOPHILS # (AUTO) 0.3 K/uL (0.0-0.4); EOSINOPHILS % (AUTO) 4.9 % (0.0-4.0); GLUCOSE,URINE NEGATIVE (NEGATIVE); HEMATOCRIT 39.1 % (36-48); KETONES,URINE NEGATIVE (NEGATIVE); LEUKOCYTE ESTERASE ,URINE 1+ (NEGATIVE); LYMPHOCYTES # (AUTO) 2.3 K/uL (1.0-5.5); LYMPHOCYTES % (AUTO) 38.6 % (20.5-51.5); MEAN CORPUSCULAR HEMOGLOBIN 30 pg (27-31); MEAN CORPUSCULAR HGB CONC 33 % (32-36); MEAN CORPUSCULAR VOLUME 91 fL (79.0-98.0); MONOCYTES # (AUTO) 0.7 K/uL (0.0-1.0); MONOCYTES % (AUTO) 12.1 % (1.7-9.3); NEUTROPHILS # (AUTO) 2.6 K/uL (1.8-7.7); NEUTROPHILS % (AUTO) 43.5 % (40.0-70.0); NITRITE, URINE NEGATIVE (NEGATIVE); PLATELET COUNT (AUTO) 283 K/uL (130-430); PROTEIN URINE NEGATIVE (NEGATIVE); RED BLOOD CELL COUNT(AUTO) 4.32 MIL/uL (4.2-6.2); UROBILINOGEN,URINE 0.2 (0.2-1.0)
[2018-12-15 09:39] LABS: BLOOD, URINE TRACE (NEGATIVE)
[2018-12-15 09:49] LABS: BACTERIA,URINE FEW /HPF (None Seen); MUCUS,URINE None Seen /LPF (None Seen); RBC,URINE 0-3 /HPF (0-3)
[2018-12-15 10:00] LABS: ANION GAP 6 (5-15); CALCIUM 9.2 mg/dL (8.4-11.0); CHLORIDE 106 mmol/L (98-107); CREATININE 0.59 mg/dL (0.55-1.30); GLUCOSE 85 mg/dL (70-99); POTASSIUM 4.6 mmol/L (3.5-5.1); SODIUM SERUM 140 mmol/L (136-145); UREA NITROGEN, BLOOD 24 mg/dL (8-21)
[2018-12-15 10:15] LABS: ALANINE AMINOTRANSFERASE 61 U/L (12-78); ALBUMIN 3.4 g/dL (3.4-4.8); ASPARTATE AMINOTRANSFERASE 25 U/L (10-37); CHOLESTEROL 158 mg/dL (<200); HDL CHOLESTEROL 67 mg/dL (>55); LDL CHOLESTEROL 80 mg/dL (<100); THYROID STIMULATING HORMONE 2.19 uIu/mL (0.34-4.82); TOTAL BILIRUBIN 0.6 mg/dL (0.0-1.0); TRIGLYCERIDES 38 mg/dL (30-150)
== END 2018-12-15 21:15 | disposition home or self-care (01) ==
LOC: SLB 07:39
PROVIDERS: ATTEND Internal Medicine
DX: I10 Essential (primary) hypertension (principal); N39.0 Urinary tract infection, site not specified; E78.5 Hyperlipidemia, unspecified; E03.9 Hypothyroidism, unspecified; M81.0 Age-related osteoporosis without current pathological fracture; E55.9 Vitamin D deficiency, unspecified; E56.8 Deficiency of other vitamins; E11.9 Type 2 diabetes mellitus without complications; Z79.899 Other long term (current) drug therapy
CPT/HCPCS: 36415; 80053; 80061; 81000-TC; 82306; 82607; 84443-TC; 85025; 87086

== ENCOUNTER 2019-07-21 09:05 | Inpatient (IN) | payer OTHER ==
[~2019-07-21] VITALS: Ht 162.6 cm; Wt 62.6 kg
--- NOTE | 2019-07-21 09:07 | NUR ---
Patient to ER bed 01 to gown for evaluation. Side rails up. Placed on a continuous awake overnight monitor and vital signs check.
[2019-07-21 09:08] VITALS: BP_SYST 131
--- NOTE | 2019-07-21 09:08 | NUR ---
ADELITA Samson at bedside examining patient.
--- NOTE | 2019-07-21 09:08 | NUR ---
Patient arrived in the ED c/o heart racing since last night. Denied any nausea or vomiting. Denied any shortness of breath. Alert and oriented x4, respirations even and unlabored, ambulating with a steady gait, speaking in full sentences. VS WNL. Daughter at bedside. Informed of the wait time. Instructed to notify ED staff if there are any changes in condition or worsening of symptoms. Patient verbalized understanding.
[2019-07-21] MEDS ORDERED: ADENOSINE 6MG/2ML VIAL IVP ONE (09:15)
--- NOTE | 2019-07-21 09:15 | NUR ---
# 22 gauge angiocath placed to right hand. Use of asceptic technique. Opsite placed over site. Blood return noted. Blood for lab drawn from site. Flushed with 10 cc of normal saline. No evidence of infiltration noted. Patient tolerated well.
--- NOTE | 2019-07-21 09:27 | NUR ---
Administered Cardizem IVP as ordered by Dr. Samson. Patient tolerated the medication well.
--- NOTE | 2019-07-21 09:28 | NUR ---
ECG #2 done at bedside as ordered by Dr. Samson. Patient tolerated the procedure well. .
[2019-07-21] MEDS ORDERED: DILTIAZEM HCL 25 MG/5 ML VIAL IVP ONE ×2 (09:30→11:45)
[2019-07-21 09:49] LABS: BASOPHILS # (AUTO) 0.1 K/uL (0.0-0.2); BASOPHILS % (AUTO) 0.7 % (0.0-2.0); EOSINOPHILS # (AUTO) 0.3 K/uL (0.0-0.4); EOSINOPHILS % (AUTO) 3.7 % (0.0-4.0); HEMATOCRIT 39.5 % (36-48); HEMOGLOBIN 13.1 g/dL (12.0-16.0); LYMPHOCYTES # (AUTO) 2.5 K/uL (1.0-5.5); LYMPHOCYTES % (AUTO) 35.2 % (20.5-51.5); MEAN CORPUSCULAR HEMOGLOBIN 30 pg (27-31); MEAN CORPUSCULAR HGB CONC 33 % (32-36); MEAN CORPUSCULAR VOLUME 90 fL (79.0-98.0); MONOCYTES # (AUTO) 0.9 K/uL (0.0-1.0); MONOCYTES % (AUTO) 12.8 % (1.7-9.3); NEUTROPHILS # (AUTO) 3.3 K/uL (1.8-7.7); NEUTROPHILS % (AUTO) 47.6 % (40.0-70.0); PLATELET COUNT (AUTO) 279 K/uL (130-430); RED CELL DISTRIBUTION WIDTH 14.7 % (9.0-15.0)
[2019-07-21 10:08] LABS: ANION GAP 9 (5-15); CALCIUM 9.4 mg/dL (8.4-11.0); CHLORIDE 106 mmol/L (98-107); CREATININE 0.61 mg/dL (0.55-1.30); GLUCOSE 106 mg/dL (70-99); POTASSIUM 3.4 mmol/L (3.5-5.1); SODIUM SERUM 143 mmol/L (136-145); UREA NITROGEN, BLOOD 15 mg/dL (8-21)
--- NOTE | 2019-07-21 10:16 | NUR ---
Ambulated with a steady gait to the bathroom. Urine specimen collected.
[2019-07-21 10:17] LABS: ALANINE AMINOTRANSFERASE 67 U/L (12-78); ALBUMIN 3.6 g/dL (3.4-4.8); ASPARTATE AMINOTRANSFERASE 36 U/L (10-37); TOTAL BILIRUBIN 0.4 mg/dL (0.0-1.0)
--- NOTE | 2019-07-21 10:28 | NUR ---
Reconciled medications and belonging's list done. Patient is full code.
[2019-07-21 10:42] LABS: BILIRUBIN,URINE NEGATIVE (NEGATIVE); CLARITY/URINE CLEAR (CLEAR); COLOR,URINE YELLOW (YELLOW); GLUCOSE,URINE NEGATIVE (NEGATIVE); KETONES,URINE NEGATIVE (NEGATIVE); LEUKOCYTE ESTERASE ,URINE TRACE (NEGATIVE); NITRITE, URINE NEGATIVE (NEGATIVE); PROTEIN URINE NEGATIVE (NEGATIVE); UROBILINOGEN,URINE 0.2 (0.2-1.0)
[2019-07-21 10:44] LABS: BLOOD, URINE TRACE (NEGATIVE)
[2019-07-21] MEDS ORDERED: NACL 0.9% 1,000 ML IV ONE (10:45)
--- NOTE | 2019-07-21 10:45 | NUR ---
Hang 1L of NS connected to peripheral IV. Patient tolerated the medication well.
[2019-07-21] MEDS ORDERED: IOHEXOL 350 mgI/mL, 150 ML INFUS..BTL IV ONE (11:12)
[2019-07-21 11:52] LABS: BACTERIA,URINE FEW /HPF (None Seen); MUCUS,URINE 1+ /LPF (None Seen); RBC,URINE 0-3 /HPF (0-3); WBC,URINE 0-3 /HPF (0-3)
[2019-07-21] MEDS: NACL 0.9% 1,000 ML IV SCH ×2 (11:59→18:01)
--- NOTE | 2019-07-21 12:23 | NUR ---
Patient will be admitted to care of Dr. Cole. Admitted to Telemetry unit. Will go to room 119B. Belongings list completed. Complete and up to date summary report printed. SBAR report to be given at bedside with opportunity for questions.
[2019-07-21 12:30] VITALS: BP_SYST 147
--- NOTE | 2019-07-21 12:30 | NUR ---
ADMISSION NOTE: Received patient from ER via gurney. Patient admitted with diagnosis of Rapid heart beat. Patient is awake, alert, oriented X 4. Patient oriented to hospital room, call light, toileting, pain management and safety-teach back done. Personal belongings checked and Belongings List documented. Call light within reach.
--- NOTE | 2019-07-21 12:35 | NUR ---
INITIAL NOTE: RECEIVED PATIENT FROM ER. PATIENT IS AWAKE AND ALERT x4. PATIENT ABLE TO WALK FROM THE ER GURNEY TO HER BED. PATIENT DENIES ANY PAIN AT THE MOMENT. IV SITE IS PATENT WITH NO SIGNS OF INFILTRATION. PATIENT TOLERATING OXYGEN AT ROOM AIR. PATIENT IN STABLE CONDITION. SAFETY, FALL AND ASPIRATION PRECAUTIONS ARE IN PLACE. BED LOCKED IN LOWEST POSITION WITH CALL LIGHT IN REACH. WILL CONTINUE TO MONITOR PATIENT FOR ANY CHANGES.
[2019-07-21] MEDS ORDERED: METOPROLOL TARTRATE 50 MG TABLET PO ONE (13:15)
[2019-07-21] MEDS ORDERED: POTASSIUM CHLORIDE 20 MEQ TAB.PRT.SR PO ONE (13:15)
--- NOTE | 2019-07-21 13:20 | NUR ---
CONSULTATION: REASON FOR CONSULT: NEW ONSET AFIB CONSULTING PHYSICIAN: DR MUELLER ORDERED BY: DR SCHUSTER SPOKE WITH [facility] [phone]
[2019-07-21] MEDS ORDERED: DILTIAZEM HCL 25 MG/5 ML VIAL IVP PRN (13:30)
--- NOTE | 2019-07-21 14:15 | NUR ---
RN ROUNDS: PATIENT IS AWAKE AND ALERT x4 LAYING DOWN IN BED. FAMILY AT BEDSIDE. PATIENT DENIES ANY PAIN AT THE MOMENT. NO SIGNS OF DISTRESS OR SHORTNESS OF BREATH NOTED. PATIENT IN STABLE CONDITION. WILL CONTINUE TO MONITOR PATIENT FOR ANY CHANGES.
[2019-07-21] MEDS ORDERED: THYROID 30 MG TABLET PO ONE (15:00)
--- NOTE | 2019-07-21 16:05 | NUR ---
RN ROUNDS: PATIENT IS AWAKE AND ALERT x4 LAYING DOWN IN BED. PATIENT DENIES ANY PAIN AT THE MOMENT. ASSISTED PATIENT TO THE RESTROOM AND BACK TO THE BED. PATIENT IS CURRENTLY SITTING AT THE EDGE OF THE BED. PATIENT IN STABLE CONDITION. WILL CONTINUE TO MONITOR PATIENT FOR ANY CHANGES.
[2019-07-21 16:11] LABS: PROTHROMBIN TIME 9.6 SECS (9.5-12.5)
[2019-07-21 16:15] VITALS: BP_SYST 138
--- NOTE | 2019-07-21 16:39 | NUR ---
PAGED DR SCHUSTER FOR CRITICAL LABS. SPOKE WILL LAQUITA.
--- NOTE | 2019-07-21 18:43 | NUR ---
CLOSING NOTES: PATIENT IS AWAKE AND ALERT x4 LAYING DOWN IN BED. FAMILY AT BEDSIDE. PATIENT DENIES ANY PAIN AT THE MOMENT. IV SITE IS PATENT WITH NO SIGNS OF INFILTRATION. PATIENT TOLERATING OXYGEN AT ROOM AIR. PATIENT IN STABLE CONDITION. SAFETY, FALL AND ASPIRATION PRECAUTIONS REMAINED IN PLACE THROUGHOUT THE SHIFT. BED LOCKED IN LOWEST POSITION WITH CALL LIGHT IN REACH. WILL ENDORSE PATIENT CARE TO ONCOMING CLERICAL ADJUDICATOR NURSE.
[2019-07-21 19:40] VITALS: BP_SYST 134
--- NOTE | 2019-07-21 19:40 | NUR ---
INITIAL ASSESMENT PATIENT IS LAYING IN BED AND STABLE. FAMILY IS BY BEDSIDE. CALL LIGHT IN REACH. PATIENT SUCCESSFULLY DEMONSTRATES USAGE OF CALL LIGHT AT THIS TIME. PLAN OF CARE IS DISCUSSED WITH PATIENT AND FAMILY AT THIS TIME. BED IS LOCKED, ALARMED, AND AT THE LOWEST POSITION. FALL, RESPIRATORY, AND SAFETY PRECAUTION WILL BE PLACED THROUGHOUT THE SHIFT.
[2019-07-21] MEDS: POTASSIUM CHLORIDE 20 MEQ TAB.PRT.SR PO SCH (20:09)
[2019-07-21] MEDS: METOPROLOL TARTRATE 50 MG TABLET PO SCH (20:10)
[2019-07-21] MEDS ORDERED: ENOXAPARIN SODIUM 40 MG/0.4 ML SYRINGE SUBCUT SCH (21:00)
--- NOTE | 2019-07-21 21:40 | NUR ---
ROUNDS ASSISTED PATIENT TO THE RESTROOM AT THIS TIME. PATIENT TOLERATED WELL. PATIENT REPOSITION FOR COMFORT. PATIENT IS STABLE. NO S/S OF RESPIRATORY DISTRESS NOTED. CALL LIGHT IN REACH. BED IS LOCKED, ALARMED, AND AT THE LOWEST POSITION. WILL CONTINUE TO MONITOR.
--- NOTE | 2019-07-21 23:40 | NUR ---
ROUNDS PATIENT IS TALKING WITH HER ROOMMATE AT THIS TIME. PATIENT IS STILL IN BED AND IS STABLE. NO S/S OF RESPIRATORY DISTRESS NOTED. CALL LIGHT IN REACH. BED IS LOCKED, ALARMED, AND AT THE LOWEST POSITION. WILL CONTINUE TO MONITOR.
[2019-07-22 00:05] VITALS: BP_SYST 145
--- NOTE | 2019-07-22 03:40 | NUR ---
ROUNDS PATIENT IS SLEEPING AND IS STABLE. NO S/S OF RESPIRATORY DISTRESS NOTED. CALL LIGHT IN REACH. BED IS LOCKED, ALARMED, AND AT THE LOWEST POSITION. WILL CONTINUE TO MONITOR.
--- NOTE | 2019-07-22 06:40 | NUR ---
CLOSING NOTES PATIENT IS LAYING IN BED AND STABLE. NO S/S OF RESPIRATORY DISTRESS NOTED. CALL LIGHT IN REACH. BED IS LOCKED, ALARMED, AND AT THE LOWEST POSITION. FALL, RESPIRATORY, AND SAFETY PRECAUTION HAS BEEN PLACED THROUGHOUT THE SHIFT.WILL CONTINUE TO MONITOR UNTIL REPORT IS GIVEN TO AM NURSE.
[2019-07-22 07:06] LABS: BASOPHILS % (AUTO) 0.9 % (0.0-2.0); EOSINOPHILS # (AUTO) 0.4 K/uL (0.0-0.4); EOSINOPHILS % (AUTO) 7.3 % (0.0-4.0); HEMATOCRIT 36.3 % (36-48); HEMOGLOBIN 12.1 g/dL (12.0-16.0); LYMPHOCYTES # (AUTO) 1.9 K/uL (1.0-5.5); LYMPHOCYTES % (AUTO) 36.4 % (20.5-51.5); MEAN CORPUSCULAR HEMOGLOBIN 30 pg (27-31); MEAN CORPUSCULAR HGB CONC 33 % (32-36); MEAN CORPUSCULAR VOLUME 90 fL (79.0-98.0); MONOCYTES # (AUTO) 0.6 K/uL (0.0-1.0); MONOCYTES % (AUTO) 11.3 % (1.7-9.3); NEUTROPHILS # (AUTO) 2.3 K/uL (1.8-7.7); NEUTROPHILS % (AUTO) 44.1 % (40.0-70.0); PLATELET COUNT (AUTO) 234 K/uL (130-430); RED BLOOD CELL COUNT(AUTO) 4.03 MIL/uL (4.2-6.2); RED CELL DISTRIBUTION WIDTH 14.9 % (9.0-15.0); WHITE BLOOD COUNT (AUTO) 5.3 K/uL (4.8-10.8)
--- NOTE | 2019-07-22 07:25 | NUR ---
AM ROUNDS: PATIENT LYING ON THE BED SLEEPING. BEDSIDE REPORT GIVEN BY NIGHT NURSE WOO. CALL LIGHT WITH IN REACH. BED LOCKED AT LOWEST POSITION. NOT IN ANY DISTRESS.
[2019-07-22 07:40] LABS: ANION GAP 5 (5-15); CHLORIDE 111 mmol/L (98-107); POTASSIUM 4.2 mmol/L (3.5-5.1); SODIUM SERUM 140 mmol/L (136-145)
[2019-07-22 07:41] LABS: CALCIUM 8.4 mg/dL (8.4-11.0); CREATININE 0.47 mg/dL (0.55-1.30); GLUCOSE 87 mg/dL (70-99); TRIGLYCERIDES 79 mg/dL (30-150); UREA NITROGEN, BLOOD 13 mg/dL (8-21)
[2019-07-22 07:42] LABS: CHOLESTEROL 190 mg/dL (<200); HDL CHOLESTEROL 67 mg/dL (>55); LDL CHOLESTEROL 101 mg/dL (<100)
[2019-07-22 08:04] VITALS: BP_SYST 145
[2019-07-22] MEDS: POTASSIUM CHLORIDE 20 MEQ TAB.PRT.SR PO SCH (08:43)
[2019-07-22] MEDS: METOPROLOL TARTRATE 50 MG TABLET PO SCH (08:44)
--- NOTE | 2019-07-22 08:44 | NUR ---
MED PASS: TOOK HER MEDS WELL. NO PROBLEM.
[2019-07-22] MEDS ORDERED: ASPIRIN 81 MG TABLET(ECOTRIN) PO SCH (09:00)
[2019-07-22] MEDS ORDERED: LISINOPRIL 20 MG TABLET PO SCH (09:00)
[2019-07-22] MEDS ORDERED: THYROID 30 MG TABLET PO SCH (09:00)
[2019-07-22] MEDS ORDERED: ATORVASTATIN 20 MG TABLET PO SCH (09:00)
[2019-07-22 12:47] VITALS: BP_SYST 158
--- NOTE | 2019-07-22 12:49 | NUR ---
LUNCH: PATIENT HAVING LUNCH. NO COMPLAINED MADE.
--- NOTE | 2019-07-22 14:00 | NUR ---
RN ROUNDS: PATIENT NOT IN THE ROOM,TO ULTRASOUND FOR VENOUS DOPPLER LE .
--- NOTE | 2019-07-22 14:30 | NUR ---
BACK FROM ULTRASOUND: PATIENT BACK TO HER ROOM,STABLE.
--- NOTE | 2019-07-22 15:11 | NUR ---
Cardio paged: Called dr Swain and left message c/o exchange Ivonne.
[2019-07-22] MEDS ORDERED: APIX5TAB4 PO (15:25)
[2019-07-22] MEDS ORDERED: METO-442 PO ×2 (15:29→15:31)
[2019-07-22] MEDS ORDERED: POTA20TA83 PO (15:29)
[2019-07-22 15:41] VITALS: BP_SYST 140
[2019-07-22 16:45] VITALS: BP_SYST 149
[2019-07-22] MEDS ORDERED: APIXABAN 2.5 MG TABLET PO ONE (17:00)
--- NOTE | 2019-07-22 17:25 | NUR ---
CARDIO ROUNDS: PATIENT CLEARED BY SPORTS STATISTICIAN.F/U WITH HIS OFFICE 1-2 WEEKS.
--- NOTE | 2019-07-22 18:39 | NUR ---
D/C Patient Patient given medication reconciliation form and D/C instructions. Exit Care provided. Patient verbalized understanding. MD discussed with patient the results and treatment provided. Ambulatory with assist for discharge to home. Patient in stable condition, ID band removed. IV catheter removed, intact and dressing applied, no active bleeding. Rx of Eliquis given. Patient educated on pain management. All belongings sent with patient.
[2019-07-22] MEDS ORDERED: APIXABAN 2.5 MG TABLET PO SCH ×2 (21:00)
--- NOTE | 2019-07-28 16:41 | NUR ---
Discharge Follow Up Phone Call OIL PAINTER phoned patient, , and spoke with patient's daughter, Abena. Abena stated that they filled patient's prescriptions and have made her follow up appointments with both Dr Cole PCP and a underwriting clerks supervisor. Abena stated she wanted information on patient to be available for future admissions. Patient has severe osteoporosis and small veins that make it hard to start an IV. Told Abena to discuss her concerns with Dr Cole at patient's next appointment. Notified PI team to see if this could be accomplished.
== END 2019-07-22 18:42 | disposition home or self-care (01) | DRG 689 ==
LOC: SED 09:05 → STU 11:42
PROVIDERS: ADMIT Internal Medicine; ATTEND Internal Medicine
DX: N39.0 Urinary tract infection, site not specified (principal); I21.A1 Myocardial infarction type 2; I48.91 Unspecified atrial fibrillation; E03.9 Hypothyroidism, unspecified; E78.5 Hyperlipidemia, unspecified; I11.9 Hypertensive heart disease without heart failure; E87.6 Hypokalemia; Z88.6 Allergy status to analgesic agent; Z88.0 Allergy status to penicillin; Z79.82 Long term (current) use of aspirin; Z79.899 Other long term (current) drug therapy; Z86.73 Personal history of transient ischemic attack (TIA), and cerebral infarction without residual deficits; Z79.01 Long term (current) use of anticoagulants
CPT/HCPCS: 36415; 71045; 80048; 80053; 80061; 81000-TC; 83605; 83735-TC; 83880; 84443-TC; 84484; 85025; 85379; 85610-TC; 85730-TC; 87040-TC; 87086; 93005; 93306; 93970; 96361; 96374; 96376; 99285; G0378; J1650; J3490; J7030; Q9967

== ENCOUNTER 2023-07-23 13:49 | Inpatient (IN) | payer OTHER ==
[~2023-07-23] VITALS: Ht 165.1 cm; Wt 61.2 kg
[~2023-07-23 13:49] MED LIST changes: +APIX2.5T PO; -ASPI-1153 PO; +COR25 PO; -LISI-600 PO; +LISI20TA30 PO; -METO-442 PO; +NOR10 PO
[2023-07-23 14:14] VITALS: BP_SYST 150; PULSE 57; RESP 18; TEMP 98.3; O2SAT 98
[2023-07-23] MEDS ORDERED: KETOROLAC TROMETHAMINE 30 MG VIAL IVP ONE (14:30)
[2023-07-23] MEDS ORDERED: FAMOTIDINE PF 20 MG/2 ML VIAL ONE (14:30)
[2023-07-23] MEDS ORDERED: ONDANSETRON HCL 4 MG/2 ML VIAL IVP ONE (14:30)
[2023-07-23 15:32] LABS: BASOPHILS # (AUTO) 0.1 K/uL (0.0-0.2); BASOPHILS % (AUTO) 1.1 % (0.0-2.0); EOSINOPHILS # (AUTO) 0.2 K/uL (0.0-0.4); EOSINOPHILS % (AUTO) 3.6 % (0.0-4.0); HEMATOCRIT 36.1 % (36-48); HEMOGLOBIN 11.8 g/dL (12.0-16.0); LYMPHOCYTES # (AUTO) 0.8 K/uL (1.0-5.5); LYMPHOCYTES % (AUTO) 16.2 % (20.5-51.5); MEAN CORPUSCULAR HEMOGLOBIN 29 pg (27-31); MEAN CORPUSCULAR HGB CONC 33 % (32-36); MEAN CORPUSCULAR VOLUME 88 fL (79.0-98.0); MONOCYTES # (AUTO) 0.5 K/uL (0.0-1.0); MONOCYTES % (AUTO) 9.9 % (1.7-9.3); NEUTROPHILS # (AUTO) 3.4 K/uL (1.8-7.7); NEUTROPHILS % (AUTO) 69.2 % (40.0-70.0); PLATELET COUNT (AUTO) 253 K/uL (130-430); RED BLOOD CELL COUNT(AUTO) 4.11 MIL/uL (4.2-6.2); RED CELL DISTRIBUTION WIDTH 15.1 % (9.0-15.0)
[2023-07-23 15:35] LABS: ANION GAP 8 (5-15); CALCIUM 9.4 mg/dL (8.4-11.0); CARBON DIOXIDE 25 mmol/L (23-29); CHLORIDE 107 mmol/L (98-107); CREATININE 0.76 mg/dL (0.55-1.30); GLUCOSE 112 mg/dL (74-106); POTASSIUM 4.1 mmol/L (3.5-5.1); SODIUM SERUM 140 mmol/L (136-145); UREA NITROGEN, BLOOD 33 mg/dL (8-21)
[2023-07-23] MEDS ORDERED: ASPIRIN 81 MG TABLET(ECOTRIN) PO ONE (17:30)
[2023-07-23] MEDS ORDERED: CARVEDILOL 25 MG TABLET (COREG) PO ONE (20:45)
[2023-07-23] MEDS ORDERED: lisinopriL 20 MG TABLET PO ONE (20:45)
[2023-07-23] MEDS ORDERED: KETOROLAC TROMETHAMINE 15 MG VIAL IVP PRN (20:45)
[2023-07-23] MEDS ORDERED: traMADol HCL HCL 50 MG TABLET (ULTRAM) PO PRN (20:45)
[2023-07-23] MEDS ORDERED: ACETAMINOPHEN 325 MG TABLET PO PRN (20:45)
[2023-07-23] MEDS ORDERED: hydrALAZINE HCL 20 MG/ML VIAL IVP PRN (20:45)
[2023-07-23] MEDS ORDERED: CARVEDILOL 25 MG TABLET (COREG) PO SCH (21:00)
[2023-07-23] MEDS ORDERED: lisinopriL 20 MG TABLET PO SCH (21:00)
[2023-07-23] MEDS: APIXABAN 2.5 MG TABLET PO SCH (23:38)
[2023-07-24 04:40] LABS: BASOPHILS % (AUTO) 0.5 % (0.0-2.0); EOSINOPHILS % (AUTO) 0.5 % (0.0-4.0); HEMATOCRIT 36.2 % (36-48); HEMOGLOBIN 11.7 g/dL (12.0-16.0); LYMPHOCYTES # (AUTO) 0.6 K/uL (1.0-5.5); LYMPHOCYTES % (AUTO) 7.7 % (20.5-51.5); MEAN CORPUSCULAR HEMOGLOBIN 28 pg (27-31); MEAN CORPUSCULAR HGB CONC 32 % (32-36); MEAN CORPUSCULAR VOLUME 88 fL (79.0-98.0); MONOCYTES # (AUTO) 0.7 K/uL (0.0-1.0); MONOCYTES % (AUTO) 8.9 % (1.7-9.3); NEUTROPHILS # (AUTO) 6.5 K/uL (1.8-7.7); NEUTROPHILS % (AUTO) 82.4 % (40.0-70.0); PLATELET COUNT (AUTO) 242 K/uL (130-430); RED BLOOD CELL COUNT(AUTO) 4.11 MIL/uL (4.2-6.2); RED CELL DISTRIBUTION WIDTH 14.9 % (9.0-15.0)
[2023-07-24 04:43] LABS: ANION GAP 9 (5-15); CALCIUM 8.5 mg/dL (8.4-11.0); CARBON DIOXIDE 26 mmol/L (23-29); CHLORIDE 105 mmol/L (98-107); CREATININE 0.65 mg/dL (0.55-1.30); GLUCOSE 101 mg/dL (74-106); POTASSIUM 4.3 mmol/L (3.5-5.1); SODIUM SERUM 140 mmol/L (136-145); UREA NITROGEN, BLOOD 32 mg/dL (8-21)
[2023-07-24 05:02] LABS: ALANINE AMINOTRANSFERASE 64 U/L (12-78); ASPARTATE AMINOTRANSFERASE 77 U/L (10-37); TOTAL BILIRUBIN 0.6 mg/dL (0.0-1.0); TOTAL PROTEIN, SERUM 6.2 g/dL (6.4-8.3)
[2023-07-24 08:38] VITALS: BP_SYST 144; PULSE 80; RESP 20; TEMP 98.4; O2SAT 92
[2023-07-24] MEDS ORDERED: lisinopriL 20 MG TABLET PO SCH (09:00)
[2023-07-24] MEDS ORDERED: ATORVASTATIN 20 MG TABLET PO SCH (09:00)
[2023-07-24] MEDS ORDERED: CARVEDILOL 25 MG TABLET (COREG) PO SCH (09:00)
[2023-07-24 11:31] VITALS: O2SAT 96
[2023-07-24] MEDS ORDERED: THYROID 30 MG TABLET PO ONE (12:00)
[2023-07-24] MEDS: APIXABAN 2.5 MG TABLET PO SCH (12:12)
[2023-07-24 16:59] LABS: CHOLESTEROL 156 mg/dL (<200); HDL CHOLESTEROL 71 mg/dL (>55); TRIGLYCERIDES 33 mg/dL (30-150)
[2023-07-24 17:41] LABS: BILIRUBIN,URINE NEGATIVE (NEGATIVE); BLOOD, URINE NEGATIVE (NEGATIVE); CLARITY/URINE CLEAR (CLEAR); COLOR,URINE YELLOW (YELLOW); GLUCOSE,URINE NEGATIVE (NEGATIVE); KETONES,URINE TRACE (NEGATIVE); LEUKOCYTE ESTERASE ,URINE NEGATIVE (NEGATIVE); NITRITE, URINE NEGATIVE (NEGATIVE); PROTEIN URINE NEGATIVE (NEGATIVE); UROBILINOGEN,URINE 0.2 (0.2-1.0)
[2023-07-24 18:27] VITALS: BP_SYST 139; PULSE 68; RESP 18; TEMP 98.1; O2SAT 92
[2023-07-24 18:28] VITALS: BP_SYST 139; PULSE 68; RESP 18; TEMP 98.1; O2SAT 92
[2023-07-25] MEDS ORDERED: THYROID 30 MG TABLET PO SCH (09:00)
== END 2023-07-24 19:30 | disposition home health service (06) | DRG 183 ==
LOC: SED 13:49 → STU 17:37
PROVIDERS: ADMIT Internal Medicine; ATTEND Internal Medicine
DX: S22.42XA Multiple fractures of ribs, left side, initial encounter for closed fracture (principal); I21.A1 Myocardial infarction type 2; S79.911A Unspecified injury of right hip, initial encounter; W18.39XA Other fall on same level, initial encounter; I48.0 Paroxysmal atrial fibrillation; I49.3 Ventricular premature depolarization; E03.9 Hypothyroidism, unspecified; Z79.899 Other long term (current) drug therapy; I10 Essential (primary) hypertension; I34.81 Nonrheumatic mitral (valve) annulus calcification; Z87.891 Personal history of nicotine dependence; Z88.5 Allergy status to narcotic agent; Z88.0 Allergy status to penicillin; Z86.73 Personal history of transient ischemic attack (TIA), and cerebral infarction without residual deficits; Z79.83 Long term (current) use of bisphosphonates; Z79.01 Long term (current) use of anticoagulants; Y93.89 Activity, other specified; M81.0 Age-related osteoporosis without current pathological fracture; Y92.89 Other specified places as the place of occurrence of the external cause; Y99.8 Other external cause status
CPT/HCPCS: 36415; 71045; 71110; 72170-TC; 73502; 80048; 80053; 80061; 81001; 81003; 83735; 83880; 84439; 84443; 84484; 85025; 93005; 96374; 96375; 97116-GP; 97530-GP; 99285; G0378; J0360; J1885; J2405; J3490